=== PATIENT | male | born 1985 | race Hispanic/Latino ===

== ENCOUNTER 2018-01-03 00:47 | Emergency (ER) | payer SELFPAY ==
[2018-01-03] MEDS ORDERED: Proparacaine 0.5% Opth 15 ML BOT ONE (00:57)
[2018-01-03] MEDS ORDERED: Fluorescein Opthalmic Strip ONE (00:57)
== END 2018-01-03 01:56 | disposition home or self-care (01) ==
LOC: ERS 00:47
DX: H10.9 Unspecified conjunctivitis (principal); F17.210 Nicotine dependence, cigarettes, uncomplicated
CPT/HCPCS: 99282

== ENCOUNTER 2018-06-10 11:37 | Emergency (ER) | payer SELFPAY ==
[2018-06-10] MEDS ORDERED: Ketorolac Tromethamine 30 MG/ML VIAL ONE (13:42)
== END 2018-06-10 14:35 | disposition home or self-care (01) ==
LOC: ERS 11:37
DX: S39.012A Strain of muscle, fascia and tendon of lower back, initial encounter (principal); F17.210 Nicotine dependence, cigarettes, uncomplicated; X58.XXXA Exposure to other specified factors, initial encounter
CPT/HCPCS: 96372; J1885

== ENCOUNTER 2023-10-13 16:53 | Emergency (ER) | payer SELFPAY ==
[2023-10-13] MEDS ORDERED: Lidocaine 1% w/Epinephrine 1:100K 20 ML VIAL ONE (17:19)
[2023-10-13] MEDS ORDERED: Bacitracin 1 PK ONE (20:01)
== END 2023-10-13 20:08 | disposition home or self-care (01) ==
LOC: ERS 16:53
DX: S51.812A Laceration without foreign body of left forearm, initial encounter (principal); S51.811A Laceration without foreign body of right forearm, initial encounter; F17.210 Nicotine dependence, cigarettes, uncomplicated; W22.8XXA Striking against or struck by other objects, initial encounter
CPT/HCPCS: 12004